=== PATIENT | male | born 1980 | race Caucasian/White ===

== ENCOUNTER 2016-05-10 23:40 | Emergency (ER) | payer SELFPAY ==
[2016-05-11 05:11] LABS: HEMOGLOBIN 16.1 gm/dl (14.0-17.5); RED BLOOD COUNT 5.01 M/UL (4.20-5.50)
[2016-05-11 05:27] LABS: BUN/CREATININE RATIO 21 (0-10)
== END 2016-05-11 14:20 | disposition home or self-care (01) ==
LOC: ER1 23:40
PROVIDERS: Family Medicine
DX: R60.0 Localized edema (principal); N39.0 Urinary tract infection, site not specified
CPT/HCPCS: ECHO; 36415; 71020; 80053; 81001; 82550; 83880; 85025; 85379; 87086; 93005; 93306; 93970; 96365; 99284; J0696; J7050

== ENCOUNTER 2020-02-21 07:05 | Inpatient (IN) | payer OTHER ==
[~2020-02-21] VITALS: Ht 172.7 cm; Wt 115.6 kg
[~2020-02-21 07:05] MED LIST: ASPIRIN EC81 MG PO; CLEOCIN HCL300 MG PO; COREG6.25 MG PO; CYCLOBENZAPRINE5 MG PO; LOPRESSOR 25 MG25 MG PO; MEDROL DOSEPAK 24 MG PO; NASAL SPRAY30 ML; ROCEPHIN 2 GM AD2 GM IV; THERAGRAN M TAB1 EA PO; VANCOCIN IV 11000 MG IV
[2020-02-21 08:18] LABS: HEMOGLOBIN 15.2 gm/dl (14.0-17.5); RED BLOOD COUNT 5.05 M/UL (4.20-5.50); WHITE BLOOD COUNT 13.8 K/UL (4.5-11.0)
[2020-02-21 08:43] LABS: BUN/CREATININE RATIO 13 (0-10)
[2020-02-21] MEDS ORDERED: WARFARIN SODIUM10 MG PO (12:59)
[2020-02-21 16:53] LABS: HEMOGLOBIN 14.7 gm/dl (14.0-17.5); RED BLOOD COUNT 4.93 M/UL (4.20-5.50); WHITE BLOOD COUNT 11.8 K/UL (4.5-11.0)
[2020-02-22 02:21] LABS: HEMOGLOBIN 14.7 gm/dl (14.0-17.5); RED BLOOD COUNT 5.01 M/UL (4.20-5.50); WHITE BLOOD COUNT 8.2 K/UL (4.5-11.0)
[2020-02-22 02:44] LABS: BUN/CREATININE RATIO 7 (0-10)
[2020-02-23 02:51] LABS: HEMOGLOBIN 14.6 gm/dl (14.0-17.5); RED BLOOD COUNT 4.87 M/UL (4.20-5.50); WHITE BLOOD COUNT 8.2 K/UL (4.5-11.0)
[2020-02-23 03:51] LABS: BUN/CREATININE RATIO 11 (0-10)
[2020-02-24 06:02] LABS: HEMOGLOBIN 15.5 gm/dl (14.0-17.5); RED BLOOD COUNT 5.15 M/UL (4.20-5.50); WHITE BLOOD COUNT 6.8 K/UL (4.5-11.0)
[2020-02-24 06:23] LABS: BUN/CREATININE RATIO 12 (0-10)
[2020-02-25 07:38] LABS: HEMOGLOBIN 14.9 gm/dl (14.0-17.5); RED BLOOD COUNT 5.13 M/UL (4.20-5.50); WHITE BLOOD COUNT 8.1 K/UL (4.5-11.0)
[2020-02-25 08:00] LABS: BUN/CREATININE RATIO 12 (0-10)
--- NOTE | 2020-02-25 20:34 | NUR ---
PATIENT STATED THAT HE WANTED TO LEAVE THE HOSPITAL AGAINST MEDICAL ADVICE. FIELD MECHANICAL METER TESTER INFORMED PATIENT OF COMPLICATIONS THAT COULD OCCUR IF HE CHOSE TO LEAVE AGAINST THE MEDICAL ADVICE OF A LICENSED PHYSICIAN. PATIENT VERBALIZED UNDERSTANDING AND IS ALERT AND ORIENTED X3. FIELD MECHANICAL METER TESTER NOTIFIED DR. PEREZ WHO INSTRUCTED FIELD MECHANICAL METER TESTER TO PROVIDE PATIENT WITH THE PROPER DOCUMENTATION. AGAINST MEDICAL ADVICE FORM FILLED OUT, SIGNED BY PATIENT, AND WITNESSED BY FIELD MECHANICAL METER TESTER. FIELD MECHANICAL METER TESTER NOTIFIED CONSERVATION SCIENCE OFFICER WELL. BILATERAL IV'S REMOVED FROM PATIENT. NO S/SX OF PAIN, DISCOMFORT, OR DISTRESS. PATIENT STATED HE HAD A MODE OF TRANSPORTATION AND EXITED FIFTH FLOOR.------LEONARDO HENSON RN 02/25/202037
[2020-05-23] MEDS ORDERED: LOVENOX SY120 MG/0.8 SC (01:45)
[2020-05-24] MEDS ORDERED: WARFARIN SODIUM5 MG PO (11:23)
[2020-05-25] MEDS ORDERED: WARFARIN SODIUM10 MG PO (11:24)
== END 2020-02-25 20:34 | disposition left against medical advice (07) | DRG 313 ==
LOC: ER1 07:05 → CDU 12:00 → M/S 13:41
PROVIDERS: Emergency Medicine; Internal Medicine; Physician Assistant Medical; ADMIT Internal Medicine
DX: R07.89 Other chest pain (principal); K22.8 Other specified diseases of esophagus; Z95.2 Presence of prosthetic heart valve; I10 Essential (primary) hypertension; F17.210 Nicotine dependence, cigarettes, uncomplicated; Z82.49 Family history of ischemic heart disease and other diseases of the circulatory system; R79.9 Abnormal finding of blood chemistry, unspecified; D50.9 Iron deficiency anemia, unspecified; R79.1 Abnormal coagulation profile; Z90.49 Acquired absence of other specified parts of digestive tract; Z98.61 Coronary angioplasty status; Z83.3 Family history of diabetes mellitus; Z82.69 Family history of other diseases of the musculoskeletal system and connective tissue; Z80.9 Family history of malignant neoplasm, unspecified; Z79.82 Long term (current) use of aspirin; I44.30 Unspecified atrioventricular block; K20.90 Esophagitis, unspecified without bleeding; Z91.14 Patient's other noncompliance with medication regimen; E78.5 Hyperlipidemia, unspecified
CPT/HCPCS: ECHO; 36415; 71045; 80048; 80053; 80061; 82550; 82553; 83735; 83874; 83880; 84443; 84484; 85025; 85027; 85379; 85610; 85730; 93005; 93306; 96374; 96375; 99285; C9113; G0378; J1335; J1644; J2270; J2405; J7030; Q9967

== ENCOUNTER 2020-03-04 18:11 | Inpatient (IN) | payer OTHER ==
[~2020-03-04] VITALS: Ht 172.7 cm; Wt 108.4 kg
[~2020-03-04 18:11] MED LIST changes: -DOXYCYCLINE HY100 M2 PO; -JANTOVEN2 MG PO; -LOVENOX SY120 MG/0.8 SC; -NAPROSYN500 MG PO; -WARFARIN SODIUM5 MG PO
[2020-03-04 19:54] LABS: HEMOGLOBIN 14.1 gm/dl (14.0-17.5); RED BLOOD COUNT 4.71 M/UL (4.20-5.50); WHITE BLOOD COUNT 7.2 K/UL (4.5-11.0)
[2020-03-04 20:30] LABS: BUN/CREATININE RATIO 21 (0-10)
[2020-03-05 03:15] LABS: HEMOGLOBIN 14.5 gm/dl (14.0-17.5); RED BLOOD COUNT 4.86 M/UL (4.20-5.50)
[2020-03-05 03:16] LABS: WHITE BLOOD COUNT 10.6 K/UL (4.5-11.0)
[2020-03-05 03:42] LABS: BUN/CREATININE RATIO 20 (0-10)
[2020-03-06 07:07] LABS: HEMOGLOBIN 13.8 gm/dl (14.0-17.5); RED BLOOD COUNT 4.67 M/UL (4.20-5.50); WHITE BLOOD COUNT 11.4 K/UL (4.5-11.0)
[2020-03-06 07:46] LABS: BUN/CREATININE RATIO 11 (0-10)
[2020-03-06 11:13] LABS: HBSAG SCREEN Negative (Negative); HEP A AB, IGM Negative (Negative); HEP B CORE AB, IGM Negative (Negative); HEP C VIRUS AB >11.0 (0.0-0.9)
[2020-03-06 17:26] LABS: HEMOGLOBIN 13.5 gm/dl (14.0-17.5); RED BLOOD COUNT 4.55 M/UL (4.20-5.50)
--- NOTE | 2020-03-07 00:45 | NUR ---
LABORATORY WAS NOTIFIED THAT PTT, HEPARIN PROTOCOL WAS DUE AT 0005 ON 03/07/20. STILL WAITING ON LAB TO DRAW LEVEL. WCTM
--- NOTE | 2020-03-07 00:56 | NUR ---
PT REFUSED TO BE STUCK TWICE WITHIN A 3-HOUR TIME PERIOD, THEREFORE SEXUAL HEALTH PHYSICIAN JOSSY PTT HP, WELL ALL OTHER AM LABS.
[2020-03-07 01:18] LABS: HEMOGLOBIN 13.7 gm/dl (14.0-17.5); RED BLOOD COUNT 4.65 M/UL (4.20-5.50); WHITE BLOOD COUNT 10.7 K/UL (4.5-11.0)
[2020-03-07 01:38] LABS: BUN/CREATININE RATIO 12 (0-10)
[2020-03-08 04:16] LABS: HEMOGLOBIN 13.2 gm/dl (14.0-17.5); RED BLOOD COUNT 4.41 M/UL (4.20-5.50)
[2020-03-08 04:17] LABS: WHITE BLOOD COUNT 7.2 K/UL (4.5-11.0)
[2020-03-08 04:53] LABS: BUN/CREATININE RATIO 8 (0-10)
--- NOTE | 2020-03-08 18:19 | NUR ---
DR. GELLER AWARE OF CHEST PAIN AND PRESSURE. NEW ORDERS NOTED.
[2020-03-09 08:49] LABS: HEMOGLOBIN 14.3 gm/dl (14.0-17.5); RED BLOOD COUNT 4.8 M/UL (4.20-5.50); WHITE BLOOD COUNT 7.1 K/UL (4.5-11.0)
[2020-03-09 09:14] LABS: BUN/CREATININE RATIO 8 (0-10)
[2020-03-09] MEDS ORDERED: WARFARIN SODIUM5 MG PO (09:55)
[2020-03-09] MEDS ORDERED: JANTOVEN2 MG PO (09:55)
[2020-03-09] MEDS ORDERED: DOXYCYCLINE HY100 M2 PO (09:55)
[2020-05-23] MEDS ORDERED: LOVENOX SY120 MG/0.8 SC (01:45)
[2020-05-24] MEDS ORDERED: WARFARIN SODIUM5 MG PO (11:23)
[2020-05-25] MEDS ORDERED: WARFARIN SODIUM10 MG PO (11:24)
== END 2020-03-09 12:44 | disposition home or self-care (01) | DRG 948 ==
LOC: ER1 18:11 → CDU 22:11 → M/S 22:11
PROVIDERS: Family Medicine; Internal Medicine; ADMIT Internal Medicine
DX: R79.1 Abnormal coagulation profile (principal); B17.9 Acute viral hepatitis, unspecified; E87.1 Hypo-osmolality and hyponatremia; Z20.822 Contact with and (suspected) exposure to COVID-19; T45.515A Adverse effect of anticoagulants, initial encounter; J40 Bronchitis, not specified as acute or chronic; I10 Essential (primary) hypertension; D69.59 Other secondary thrombocytopenia; B18.2 Chronic viral hepatitis C; E78.5 Hyperlipidemia, unspecified; I25.10 Atherosclerotic heart disease of native coronary artery without angina pectoris; E87.6 Hypokalemia; Z87.891 Personal history of nicotine dependence; Z79.01 Long term (current) use of anticoagulants; Z79.82 Long term (current) use of aspirin; I25.2 Old myocardial infarction; Z95.2 Presence of prosthetic heart valve; Z80.1 Family history of malignant neoplasm of trachea, bronchus and lung; Z79.899 Other long term (current) drug therapy
CPT/HCPCS: 36415; 71046; 76705; 80048; 80053; 80074; 80076; 80307; 82550; 82553; 83540; 83550; 83874; 84484; 85025; 85027; 85610; 85730; 93005; 99284; G0378; G0480; J1644; J3430; U0002

== ENCOUNTER → 2020-03-04 | Outpatient (CLI) | payer OTHER ==
[~2020-03-04] MED LIST changes: +DOXYCYCLINE HY100 M2 PO; +JANTOVEN2 MG PO; +LOVENOX SY120 MG/0.8 SC; +NAPROSYN500 MG PO; +WARFARIN SODIUM10 MG PO; +WARFARIN SODIUM5 MG PO
== END ==
LOC: LAB 15:19
DX: Z53.9 Procedure and treatment not carried out, unspecified reason (principal)
CPT/HCPCS: 36415; 85610

== ENCOUNTER 2020-05-02 09:36 | Emergency (ER) | payer OTHER ==
[~2020-05-02 09:36] MED LIST changes: +DOXYCYCLINE HY100 M2 PO; +JANTOVEN2 MG PO; +WARFARIN SODIUM5 MG PO
[2020-05-02] MEDS ORDERED: NAPROSYN500 MG PO (11:01)
[2020-05-23] MEDS ORDERED: LOVENOX SY120 MG/0.8 SC (01:45)
[2020-05-24] MEDS ORDERED: WARFARIN SODIUM5 MG PO (11:23)
[2020-05-25] MEDS ORDERED: WARFARIN SODIUM10 MG PO (11:24)
== END 2020-05-02 11:18 | disposition home or self-care (01) ==
LOC: ER1 09:36
DX: S63.502A Unspecified sprain of left wrist, initial encounter (principal); X50.0XXA Overexertion from strenuous movement or load, initial encounter
CPT/HCPCS: 29125; 73110; 96372; 99283; J1885

== ENCOUNTER 2020-05-17 14:35 | Emergency (ER) | payer OTHER ==
[~2020-05-17 14:35] MED LIST changes: +NAPROSYN500 MG PO
[2020-05-17 15:40] LABS: HEMOGLOBIN 15.8 gm/dl (14.0-17.5); RED BLOOD COUNT 5.01 M/UL (4.20-5.50); WHITE BLOOD COUNT 14.1 K/UL (4.5-11.0)
[2020-05-17 16:32] LABS: BUN/CREATININE RATIO 14 (0-10)
[2020-05-23] MEDS ORDERED: LOVENOX SY120 MG/0.8 SC (01:45)
[2020-05-24] MEDS ORDERED: WARFARIN SODIUM5 MG PO (11:23)
[2020-05-25] MEDS ORDERED: WARFARIN SODIUM10 MG PO (11:24)
== END 2020-05-17 19:20 | disposition home or self-care (01) ==
LOC: ER1 14:35
PROVIDERS: Family Medicine
DX: R03.0 Elevated blood-pressure reading, without diagnosis of hypertension (principal); I10 Essential (primary) hypertension; I35.8 Other nonrheumatic aortic valve disorders; F17.210 Nicotine dependence, cigarettes, uncomplicated
CPT/HCPCS: 30903; 80053; 85025; 85610; 96374; 99283; J2550

== ENCOUNTER 2020-05-25 23:43 | Inpatient (IN) | payer OTHER ==
[~2020-05-25] VITALS: Ht 172.7 cm; Wt 111.1 kg
[~2020-05-25 23:43] MED LIST changes: +LOVENOX SY120 MG/0.8 SC
[2020-05-26 00:14] LABS: HEMOGLOBIN 11.5 gm/dl (14.0-17.5); RED BLOOD COUNT 3.79 M/UL (4.20-5.50); WHITE BLOOD COUNT 12.3 K/UL (4.5-11.0)
[2020-05-26 00:40] LABS: BUN/CREATININE RATIO 11 (0-10)
[2020-05-26 05:57] LABS: HEMOGLOBIN 11.8 gm/dl (14.0-17.5); RED BLOOD COUNT 3.92 M/UL (4.20-5.50)
[2020-05-26 05:59] LABS: WHITE BLOOD COUNT 25.7 K/UL (4.5-11.0)
[2020-05-26 06:30] LABS: BUN/CREATININE RATIO 12 (0-10)
[2020-05-27 04:55] LABS: ACINETOBACTER BAUMANNII Not Detected (Negative); CANDIDA ALBICANS Not Detected (Negative); CANDIDA KRUSEI Not Detected (Negative); CANDIDA TROPICALIS Not Detected (Negative); ENTEROCOCCUS Not Detected (Negative); ESCHERICHIA COLI Not Detected (Negative); HAEMOPHILUS INFLUENZAE Not Detected (Negative); KLEBSIELLA OXYTOCA Not Detected (Negative); KLEBSIELLA PNEUMONIAE Not Detected (Negative); KPC-CARBAPENEM-RESISTANCE GENE Not Detected (Negative); PROTEUS Not Detected (Negative); PSEUDOMONAS AERUGINOSA Not Detected (Negative); SERRATIA MARCESANS Not Detected (Negative); STAPHYLOCOCCUS Not Detected (Negative); STAPHYLOCOCCUS AUREUS Not Detected (Negative); STREP AGALACTIAE (GROUP B) Not Detected (Negative); STREP PYOGENES (GROUP A) Not Detected (Negative); STREPTOCOCCUS Not Detected (Negative); mecA (METHICILLIN RESIST GENE Not Detected (Negative); vanA/B (VANCOMYCIN RESIST GENE Not Detected (Negative)
[2020-05-27 05:20] LABS: HEMOGLOBIN 11.9 gm/dl (14.0-17.5); RED BLOOD COUNT 3.96 M/UL (4.20-5.50)
[2020-05-27 05:26] LABS: WHITE BLOOD COUNT 17.8 K/UL (4.5-11.0)
[2020-05-27 05:49] LABS: BUN/CREATININE RATIO 20 (0-10)
[2020-05-27 13:05] LABS: HEMOGLOBIN 11.2 gm/dl (14.0-17.5); RED BLOOD COUNT 3.68 M/UL (4.20-5.50); WHITE BLOOD COUNT 13.5 K/UL (4.5-11.0)
[2020-05-28 04:40] LABS: HEMOGLOBIN 10.6 gm/dl (14.0-17.5); RED BLOOD COUNT 3.52 M/UL (4.20-5.50)
[2020-05-28 04:47] LABS: WHITE BLOOD COUNT 9.5 K/UL (4.5-11.0)
[2020-05-28 05:02] LABS: BUN/CREATININE RATIO 16 (0-10)
[2020-05-29 04:36] LABS: HEMOGLOBIN 10.9 gm/dl (14.0-17.5); RED BLOOD COUNT 3.66 M/UL (4.20-5.50); WHITE BLOOD COUNT 9.1 K/UL (4.5-11.0)
[2020-05-29 04:54] LABS: BUN/CREATININE RATIO 10 (0-10)
== END 2020-05-29 15:01 | disposition other institution (70) | DRG 314 ==
LOC: ER1 23:43 → CDU 05-26 01:04 → CCU 05-26 01:04
PROVIDERS: Emergency Medicine; Internal Medicine Cardiovascular Disease; Internal Medicine Infectious Disease; ADMIT Internal Medicine
DX: T82.6XXA Infection and inflammatory reaction due to cardiac valve prosthesis, initial encounter (principal); R65.21 Severe sepsis with septic shock; I33.0 Acute and subacute infective endocarditis; A41.89 Other specified sepsis; N17.9 Acute kidney failure, unspecified; I44.2 Atrioventricular block, complete; E87.1 Hypo-osmolality and hyponatremia; Z68.41 Body mass index [BMI] 40.0-44.9, adult; Y83.8 Other surgical procedures as the cause of abnormal reaction of the patient, or of later complication, without mention of misadventure at the time of the procedure; E87.6 Hypokalemia; F17.200 Nicotine dependence, unspecified, uncomplicated; Z20.822 Contact with and (suspected) exposure to COVID-19; E83.39 Other disorders of phosphorus metabolism; Z90.49 Acquired absence of other specified parts of digestive tract; Z85.9 Personal history of malignant neoplasm, unspecified; D50.9 Iron deficiency anemia, unspecified; E66.9 Obesity, unspecified; Z79.82 Long term (current) use of aspirin; Z83.3 Family history of diabetes mellitus; Z80.9 Family history of malignant neoplasm, unspecified; Z82.49 Family history of ischemic heart disease and other diseases of the circulatory system
CPT/HCPCS: ECHO; 36415; 71045; 80053; 80202; 80307; 81001; 82550; 82553; 82962; 83605; 83690; 83735; 83874; 83880; 84100; 84439; 84443; 84484; 85025; 85027; 85610; 85730; 86140; 87040; 87077; 87150; 87186; 93005; 93306; 93312; 93320; 96365; 96375; 99285; J0461; J0696; J1200; J1265; J1644; J2250; J3010; J3370; J3480; J7030; J7070; U0002

== ENCOUNTER → 2020-10-06 | Outpatient (CLI) | payer OTHER ==
[~2020-10-06] MED LIST changes: +AMOXICILLIN500 MG PO; +BUPRENORPHIN-N1 EACH SL; +CARVEDILOL6.25 MG PO; +ENOXAPARIN120 MG/0.8 SC; +JANTOVEN1 MG PO
== END ==
LOC: HEART 5 09-10 15:00
DX: R06.02 Shortness of breath (principal)
CPT/HCPCS: 93306

== ENCOUNTER 2020-10-15 12:00 | Inpatient (IN) | payer OTHER ==
[~2020-10-15] VITALS: Ht 172.7 cm; Wt 110.7 kg
[~2020-10-15 12:00] MED LIST changes: -AMOXICILLIN500 MG PO; -BUPRENORPHIN-N1 EACH SL; -CARVEDILOL6.25 MG PO; -ENOXAPARIN120 MG/0.8 SC; -JANTOVEN1 MG PO
[2020-10-15 13:09] LABS: HEMOGLOBIN 15.1 gm/dl (14.0-17.5); RED BLOOD COUNT 5.08 M/UL (4.20-5.50); WHITE BLOOD COUNT 20.9 K/UL (4.5-11.0)
[2020-10-15] MEDS ORDERED: CARVEDILOL6.25 MG PO (22:20)
[2020-10-15] MEDS ORDERED: WARFARIN SODIUM5 MG PO (22:20)
[2020-10-15] MEDS ORDERED: AMOXICILLIN500 MG PO (22:21)
[2020-10-16 03:59] LABS: ACINETOBACTER BAUMANNII Not Detected (Negative); CANDIDA ALBICANS Not Detected (Negative); CANDIDA KRUSEI Not Detected (Negative); CANDIDA TROPICALIS Not Detected (Negative); ENTEROCOCCUS Not Detected (Negative); ESCHERICHIA COLI Not Detected (Negative); HAEMOPHILUS INFLUENZAE Not Detected (Negative); KLEBSIELLA OXYTOCA Not Detected (Negative); KLEBSIELLA PNEUMONIAE Not Detected (Negative); KPC-CARBAPENEM-RESISTANCE GENE Not Detected (Negative); PROTEUS Not Detected (Negative); PSEUDOMONAS AERUGINOSA Not Detected (Negative); SERRATIA MARCESANS Not Detected (Negative); STREP AGALACTIAE (GROUP B) Not Detected (Negative); STREP PYOGENES (GROUP A) Not Detected (Negative); STREPTOCOCCUS Not Detected (Negative); vanA/B (VANCOMYCIN RESIST GENE Not Detected (Negative)
[2020-10-16 04:03] LABS: STAPHYLOCOCCUS DETECTED (Negative); mecA (METHICILLIN RESIST GENE DETECTED (Negative)
[2020-10-16 04:04] LABS: STAPHYLOCOCCUS AUREUS DETECTED (Negative)
--- NOTE | 2020-10-16 04:16 | NUR ---
PATIENTS BLOOD CULTURE RESULTS AND BIOFIRE RESULTS CALLED TO DR ELENITA ISAAC. NO NEW ORDERS AT THIS TIME. ALSO NOTIFIED HIM THAT INFECTIOUS DISEASE WILL BE OUT OF OFFICE UNTIL 10/22.
[2020-10-16 04:38] LABS: HEMOGLOBIN 13.2 gm/dl (14.0-17.5)
[2020-10-16 04:40] LABS: RED BLOOD COUNT 4.44 M/UL (4.20-5.50)
[2020-10-16] MEDS ORDERED: BUPRENORPHIN-N1 EACH SL (10:04)
[2020-10-16 12:14] LABS: HBSAG SCREEN Negative (Negative); HEP A AB, IGM Negative (Negative); HEP B CORE AB, IGM Negative (Negative); HEP C VIRUS AB >11.0 (0.0-0.9)
[2020-10-17 11:16] LABS: HEMOGLOBIN 11.3 gm/dl (14.0-17.5)
[2020-10-17 11:20] LABS: RED BLOOD COUNT 3.84 M/UL (4.20-5.50)
[2020-10-18 03:06] LABS: HEMOGLOBIN 11.5 gm/dl (14.0-17.5); RED BLOOD COUNT 3.95 M/UL (4.20-5.50); WHITE BLOOD COUNT 8.9 K/UL (4.5-11.0)
[2020-10-22 03:58] LABS: HEMOGLOBIN 11.9 gm/dl (14.0-17.5); RED BLOOD COUNT 4.07 M/UL (4.20-5.50); WHITE BLOOD COUNT 6.4 K/UL (4.5-11.0)
[2020-10-23 10:29] LABS: HEMOGLOBIN 12.1 gm/dl (14.0-17.5); RED BLOOD COUNT 4.16 M/UL (4.20-5.50); WHITE BLOOD COUNT 6.4 K/UL (4.5-11.0)
[2020-10-24 02:49] LABS: HEMOGLOBIN 11.4 gm/dl (14.0-17.5); RED BLOOD COUNT 3.9 M/UL (4.20-5.50); WHITE BLOOD COUNT 22.9 K/UL (4.5-11.0)
[2020-10-25 02:45] LABS: HEMOGLOBIN 11.4 gm/dl (14.0-17.5); RED BLOOD COUNT 3.88 M/UL (4.20-5.50)
[2020-10-25 02:47] LABS: WHITE BLOOD COUNT 8.8 K/UL (4.5-11.0)
[2020-10-26 03:13] LABS: HEMOGLOBIN 12.7 gm/dl (14.0-17.5)
[2020-10-26 03:17] LABS: RED BLOOD COUNT 4.3 M/UL (4.20-5.50); WHITE BLOOD COUNT 5.8 K/UL (4.5-11.0)
[2020-10-26 03:46] LABS: BUN/CREATININE RATIO 20 (0-10)
[2020-10-27 10:05] LABS: HEMOGLOBIN 12.1 gm/dl (14.0-17.5); RED BLOOD COUNT 4.08 M/UL (4.20-5.50)
[2020-10-27 10:26] LABS: BUN/CREATININE RATIO 20 (0-10)
[2020-10-27] MEDS ORDERED: WARFARIN SODIUM5 MG PO (13:49)
[2020-10-27] MEDS ORDERED: ENOXAPARIN120 MG/0.8 SC (13:49)
[2020-10-27] MEDS ORDERED: JANTOVEN1 MG PO (13:49)
== END 2020-10-27 16:11 | disposition home or self-care (01) | DRG 314 ==
LOC: ER1 12:00 → CDU 14:14 → PROG CARE 14:14
PROVIDERS: Emergency Medicine; Internal Medicine; Internal Medicine Infectious Disease; Physician Assistant Medical; ADMIT Internal Medicine
PROC: B24BZZ4 Ultrasonography of Heart with Aorta, Transesophageal (ICD-10-PCS; principal; 2020-10-22)
DX: T82.6XXA Infection and inflammatory reaction due to cardiac valve prosthesis, initial encounter (principal); R65.21 Severe sepsis with septic shock; N17.0 Acute kidney failure with tubular necrosis; A41.02 Sepsis due to Methicillin resistant Staphylococcus aureus; I33.0 Acute and subacute infective endocarditis; E87.1 Hypo-osmolality and hyponatremia; I44.2 Atrioventricular block, complete; F11.20 Opioid dependence, uncomplicated; Z20.822 Contact with and (suspected) exposure to COVID-19; D69.6 Thrombocytopenia, unspecified; I44.7 Left bundle-branch block, unspecified; F15.90 Other stimulant use, unspecified, uncomplicated; B19.20 Unspecified viral hepatitis C without hepatic coma; R94.5 Abnormal results of liver function studies; E78.5 Hyperlipidemia, unspecified; Y83.9 Surgical procedure, unspecified as the cause of abnormal reaction of the patient, or of later complication, without mention of misadventure at the time of the procedure; E66.9 Obesity, unspecified; I12.9 Hypertensive chronic kidney disease with stage 1 through stage 4 chronic kidney disease, or unspecified chronic kidney disease; N18.30 Chronic kidney disease, stage 3 unspecified; D63.1 Anemia in chronic kidney disease; I08.3 Combined rheumatic disorders of mitral, aortic and tricuspid valves; Z81.8 Family history of other mental and behavioral disorders; Z90.49 Acquired absence of other specified parts of digestive tract; Z95.0 Presence of cardiac pacemaker; Z95.2 Presence of prosthetic heart valve; Z82.49 Family history of ischemic heart disease and other diseases of the circulatory system; Z83.3 Family history of diabetes mellitus; Z80.8 Family history of malignant neoplasm of other organs or systems; Y92.9 Unspecified place or not applicable; Z79.01 Long term (current) use of anticoagulants; Z79.899 Other long term (current) drug therapy; Z87.01 Personal history of pneumonia (recurrent)
CPT/HCPCS: 36415; 71045; 71250; 80048; 80053; 80074; 80202; 80307; 81001; 82550; 82553; 82570; 82962; 83605; 83735; 83874; 83880; 84100; 84133; 84300; 84484; 85025; 85027; 85610; 85652; 85730; 86140; 87040; 87077; 87086; 87150; 87186; 89050; 93005; 93312; 93320; 96374; 99285; J0696; J0878; J1335; J1644; J1650; J2001; J2250; J2310; J2405; J2704; J3010; J3370; J3475; J7070; P9047; U0002

== ENCOUNTER → 2020-10-28 | Outpatient (CLI) | payer OTHER ==
[~2020-10-28] VITALS: Ht 167.6 cm; Wt 110.2 kg
[~2020-10-28] MED LIST changes: +AMOXICILLIN500 MG PO; +BUPRENORPHIN-N1 EACH SL; +CARVEDILOL6.25 MG PO; +ENOXAPARIN120 MG/0.8 SC; +JANTOVEN1 MG PO
== END ==
LOC: OPSV 11:00
DX: I38 Endocarditis, valve unspecified (principal)
CPT/HCPCS: 96365; J0878

== ENCOUNTER → 2020-10-29 | Outpatient (CLI) | payer OTHER ==
[~2020-10-29] VITALS: Ht 167.6 cm; Wt 110.2 kg
== END ==
LOC: OPSV 11:00
DX: I38 Endocarditis, valve unspecified (principal)
CPT/HCPCS: 96365; J0878

== ENCOUNTER → 2020-10-30 | Outpatient (CLI) | payer OTHER ==
[~2020-10-30] VITALS: Ht 167.6 cm; Wt 110.2 kg
== END ==
LOC: OPSV 11:00
DX: I38 Endocarditis, valve unspecified (principal)
CPT/HCPCS: 96365; J0878

== ENCOUNTER → 2020-11-01 | Outpatient (CLI) | payer OTHER | LOC: OPSV 07:30 | DX: I38 Endocarditis, valve unspecified (principal) | CPT/HCPCS: 96365; J0878 ==

== ENCOUNTER → 2020-11-03 | Outpatient (CLI) | payer OTHER ==
[~2020-11-03] VITALS: Ht 167.6 cm; Wt 110.2 kg
== END ==
LOC: OPSV 07:30
DX: I38 Endocarditis, valve unspecified (principal)
CPT/HCPCS: 96365; J0878

== ENCOUNTER → 2020-11-05 | Outpatient (CLI) | payer OTHER | LOC: OPSV 11:00 | DX: I38 Endocarditis, valve unspecified (principal) | CPT/HCPCS: 96365; J0878 ==

== ENCOUNTER → 2020-11-06 | Outpatient (CLI) | payer OTHER ==
[~2020-11-06] VITALS: Ht 167.6 cm; Wt 110.2 kg
== END ==
LOC: OPSV 11:00
DX: I38 Endocarditis, valve unspecified (principal)
CPT/HCPCS: 96365; J0878

== ENCOUNTER → 2020-11-10 | Outpatient (CLI) | payer OTHER ==
[~2020-11-10] VITALS: Ht 167.6 cm; Wt 110.2 kg
== END ==
LOC: OPSV 08:05
DX: I38 Endocarditis, valve unspecified (principal)
CPT/HCPCS: 96365; J0878

== ENCOUNTER 2020-12-10 03:19 | Emergency (ER) | payer OTHER ==
[2020-12-10 04:03] LABS: HEMOGLOBIN 10.6 gm/dl (14.0-17.5); RED BLOOD COUNT 3.49 M/UL (4.20-5.50); WHITE BLOOD COUNT 9.6 K/UL (4.5-11.0)
[2020-12-10 04:35] LABS: BUN/CREATININE RATIO 15 (0-10)
[2020-12-12 04:33] LABS: ACINETOBACTER BAUMANNII Not Detected (Negative); CANDIDA ALBICANS Not Detected (Negative); CANDIDA KRUSEI Not Detected (Negative); CANDIDA TROPICALIS Not Detected (Negative); ENTEROCOCCUS Not Detected (Negative); ESCHERICHIA COLI Not Detected (Negative); HAEMOPHILUS INFLUENZAE Not Detected (Negative); KLEBSIELLA OXYTOCA Not Detected (Negative); KLEBSIELLA PNEUMONIAE Not Detected (Negative); KPC-CARBAPENEM-RESISTANCE GENE Not Detected (Negative); PROTEUS Not Detected (Negative); PSEUDOMONAS AERUGINOSA Not Detected (Negative); SERRATIA MARCESANS Not Detected (Negative); STAPHYLOCOCCUS Not Detected (Negative); STAPHYLOCOCCUS AUREUS Not Detected (Negative); STREP AGALACTIAE (GROUP B) Not Detected (Negative); STREP PYOGENES (GROUP A) Not Detected (Negative); STREPTOCOCCUS Not Detected (Negative); mecA (METHICILLIN RESIST GENE Not Detected (Negative); vanA/B (VANCOMYCIN RESIST GENE Not Detected (Negative)
== END 2020-12-10 06:57 | disposition home or self-care (01) ==
LOC: ER1 03:19
PROVIDERS: Family Medicine
DX: J40 Bronchitis, not specified as acute or chronic (principal); I38 Endocarditis, valve unspecified; F17.210 Nicotine dependence, cigarettes, uncomplicated; Z95.0 Presence of cardiac pacemaker; R06.02 Shortness of breath; R05.9 Cough, unspecified
CPT/HCPCS: 71045; 80053; 82550; 82553; 83605; 83874; 84484; 85025; 87040; 87077; 87150; 99284

== ENCOUNTER 2020-12-12 05:25 | Inpatient (IN) | payer OTHER ==
[~2020-12-12] VITALS: Ht 172.7 cm; Wt 111.4 kg
[2020-12-12 06:55] LABS: HEMOGLOBIN 11.5 gm/dl (14.0-17.5); WHITE BLOOD COUNT 7.5 K/UL (4.5-11.0)
[2020-12-12 06:56] LABS: RED BLOOD COUNT 3.92 M/UL (4.20-5.50)
[2020-12-12 07:24] LABS: BUN/CREATININE RATIO 10 (0-10)
[2020-12-13 04:14] LABS: ACINETOBACTER BAUMANNII Not Detected (Negative); CANDIDA ALBICANS Not Detected (Negative); CANDIDA KRUSEI Not Detected (Negative); CANDIDA TROPICALIS Not Detected (Negative); ENTEROCOCCUS Not Detected (Negative); ESCHERICHIA COLI Not Detected (Negative); HAEMOPHILUS INFLUENZAE Not Detected (Negative); KLEBSIELLA OXYTOCA Not Detected (Negative); KLEBSIELLA PNEUMONIAE Not Detected (Negative); KPC-CARBAPENEM-RESISTANCE GENE Not Detected (Negative); PROTEUS Not Detected (Negative); PSEUDOMONAS AERUGINOSA Not Detected (Negative); SERRATIA MARCESANS Not Detected (Negative); STAPHYLOCOCCUS Not Detected (Negative); STAPHYLOCOCCUS AUREUS Not Detected (Negative); STREP AGALACTIAE (GROUP B) Not Detected (Negative); STREP PYOGENES (GROUP A) Not Detected (Negative); STREPTOCOCCUS Not Detected (Negative); mecA (METHICILLIN RESIST GENE Not Detected (Negative); vanA/B (VANCOMYCIN RESIST GENE Not Detected (Negative)
[2020-12-13 06:04] LABS: HEMOGLOBIN 11.2 gm/dl (14.0-17.5); RED BLOOD COUNT 3.7 M/UL (4.20-5.50); WHITE BLOOD COUNT 22.9 K/UL (4.5-11.0)
[2020-12-13] MEDS ORDERED: BUPRENORPHIN-N1 EACH SL (09:46)
[2020-12-13] MEDS ORDERED: WARFARIN SODIUM5 MG PO (16:10)
[2020-12-14 03:53] LABS: RED BLOOD COUNT 3.37 M/UL (4.20-5.50)
[2020-12-14 03:56] LABS: WHITE BLOOD COUNT 11.5 K/UL (4.5-11.0)
[2020-12-15 03:29] LABS: RED BLOOD COUNT 3.37 M/UL (4.20-5.50); WHITE BLOOD COUNT 8.9 K/UL (4.5-11.0)
[2020-12-15 04:21] LABS: BUN/CREATININE RATIO 16 (0-10)
--- NOTE | 2020-12-15 15:39 | NUR ---
PATIENT HAD PHOEBE: STARTED AT 1109, VS 118/46 MAP OF 59, 92% ON 2L/M, 86 HR. PER AND ANESTHESIA ADMINISTERING PROPOFAL. PATIENT SEDATED. INCREASED 02 TO 4L/M APPROX 1125AM DUE TO 88%, CAME UP TO 90%. 1130 116/84, MAP 92, 97%, 36HR. PROCEDURE COMPLETED AT 1127, PATIENT RESTS QUIETLY, NO DISTRESS, TUBE REMOVED. WAS FOUND TO HAVE AORTIC ABSCESS. ECHO PERFORMED PER CAITY GREER RN AND ANESTHESIA WAS ALENA MAYO
[2020-12-16 03:36] LABS: HEMOGLOBIN 9.3 gm/dl (14.0-17.5); RED BLOOD COUNT 3.14 M/UL (4.20-5.50); WHITE BLOOD COUNT 8.8 K/UL (4.5-11.0)
[2020-12-16 04:30] LABS: BUN/CREATININE RATIO 12 (0-10)
--- NOTE | 2020-12-16 19:04 | NUR ---
PT NOT IN ROOM AT THE TIME OF ATTEMPTED ASSESSMENT. WILL EDUCATE WILL PT GETS IN THE ROOM TO STAY ON THE FLOOR. WILL REASSESS AT THAT TIME.
--- NOTE | 2020-12-16 19:50 | NUR ---
patient back in the room around 1930, he was educated to stay on the floor
[2020-12-17 02:55] LABS: RED BLOOD COUNT 3.37 M/UL (4.20-5.50); WHITE BLOOD COUNT 8.7 K/UL (4.5-11.0)
[2020-12-17 03:52] LABS: BUN/CREATININE RATIO 13 (0-10)
--- NOTE | 2020-12-20 02:56 | NUR ---
Assumed pt from Albina ARAGON. Pt assessed agree with prior assessment no changes at this time. Pt did have a temp of 99.3 provided Tylenol per MAR. will continue to monitor.
[2020-12-22] MEDS ORDERED: CUBICIN 500 MG500 MG IV (12:56)
[2020-12-22 14:46] LABS: HEMOGLOBIN 10.3 gm/dl (14.0-17.5); RED BLOOD COUNT 3.51 M/UL (4.20-5.50); WHITE BLOOD COUNT 8.5 K/UL (4.5-11.0)
[2020-12-22 15:15] LABS: BUN/CREATININE RATIO 16 (0-10)
[2020-12-22] MEDS ORDERED: CARVEDILOL3.125 MG PO (15:26)
--- NOTE | 2020-12-22 16:17 | NUR ---
Unsuccessful IV attempt via ultrasound. Midline inserted. Dr. Segal notified about midline insertion stated "DC home with midline for abx" due to patient being a difficult IV stick and needing manager terminal abx treatment. 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 manager hair Colette has reached out to Ricki Espinoza to get confirmation of negative drug test results, so far unsuccessful. Will continue to follow up.
--- NOTE | 2020-12-22 18:23 | NUR ---
REPORT CALLED TO [facility] AT THIS TIME. SAADIA ARAGON
== END 2020-12-22 18:33 | disposition home health service (06) | DRG 314 ==
LOC: ER1 05:25 → MED SURG 4 08:18 → CDU 08:18 → PROG CARE 08:18 → MED SURG 4 12-18 16:06
PROVIDERS: Family Medicine; Internal Medicine; Internal Medicine Infectious Disease; Physician Assistant; ADMIT Internal Medicine
PROC: 3E033XZ Introduction of Vasopressor into Peripheral Vein, Percutaneous Approach (ICD-10-PCS; 2020-12-12)
PROC: B24BZZ4 Ultrasonography of Heart with Aorta, Transesophageal (ICD-10-PCS; 2020-12-12)
PROC: 02HV33Z Insertion of Infusion Device into Superior Vena Cava, Percutaneous Approach (ICD-10-PCS; principal; 2020-12-22)
PROC: B548ZZA Ultrasonography of Superior Vena Cava, Guidance (ICD-10-PCS; 2020-12-22)
DX: T82.6XXA Infection and inflammatory reaction due to cardiac valve prosthesis, initial encounter (principal); R65.21 Severe sepsis with septic shock; A41.02 Sepsis due to Methicillin resistant Staphylococcus aureus; Z20.822 Contact with and (suspected) exposure to COVID-19; N17.9 Acute kidney failure, unspecified; I50.22 Chronic systolic (congestive) heart failure; E87.6 Hypokalemia; D69.6 Thrombocytopenia, unspecified; F17.210 Nicotine dependence, cigarettes, uncomplicated; Y83.8 Other surgical procedures as the cause of abnormal reaction of the patient, or of later complication, without mention of misadventure at the time of the procedure; R79.1 Abnormal coagulation profile; I08.3 Combined rheumatic disorders of mitral, aortic and tricuspid valves; I11.0 Hypertensive heart disease with heart failure; I44.7 Left bundle-branch block, unspecified; B19.20 Unspecified viral hepatitis C without hepatic coma; R74.01 Elevation of levels of liver transaminase levels; F11.10 Opioid abuse, uncomplicated; I49.5 Sick sinus syndrome; Z95.0 Presence of cardiac pacemaker; Z79.82 Long term (current) use of aspirin; Z90.49 Acquired absence of other specified parts of digestive tract; Z82.49 Family history of ischemic heart disease and other diseases of the circulatory system; Z83.3 Family history of diabetes mellitus; Z91.14 Patient's other noncompliance with medication regimen; Z79.01 Long term (current) use of anticoagulants; I25.2 Old myocardial infarction
CPT/HCPCS: 36415; 71045; 73564; 80048; 80053; 82550; 82553; 83605; 83874; 83880; 84439; 84443; 84484; 85025; 85027; 85610; 85652; 86140; 87040; 87077; 87150; 93005; 93312; 93320; 93970; 96365; 96366; 96375; 99285; J0692; J0878; J1580; J2704; J3370; J7030; J7040; J7070; U0002

== ENCOUNTER 2020-12-25 21:47 | Inpatient (IN) | payer OTHER ==
[~2020-12-25] VITALS: Ht 172.7 cm; Wt 110.7 kg
[~2020-12-25 21:47] MED LIST changes: +CARVEDILOL3.125 MG PO; +CUBICIN 500 MG500 MG IV
[2020-12-25 22:37] LABS: HEMOGLOBIN 9.5 gm/dl (14.0-17.5); RED BLOOD COUNT 3.23 M/UL (4.20-5.50); WHITE BLOOD COUNT 8.4 K/UL (4.5-11.0)
--- NOTE | 2020-12-26 14:40 | NUR ---
REPORT GIVEN TO MAHESH THORNTON ON 4 MED SURG, PT BEING TRANSFERRED TO RM [id number]
[2020-12-27 07:01] LABS: RED BLOOD COUNT 3.11 M/UL (4.20-5.50); WHITE BLOOD COUNT 8.3 K/UL (4.5-11.0)
[2020-12-27 09:12] LABS: BUN/CREATININE RATIO 20 (0-10)
[2020-12-28 08:31] LABS: HEMOGLOBIN 8.9 gm/dl (14.0-17.5); RED BLOOD COUNT 3.03 M/UL (4.20-5.50); WHITE BLOOD COUNT 8.9 K/UL (4.5-11.0)
[2020-12-29 07:42] LABS: HEMOGLOBIN 9.1 gm/dl (14.0-17.5); RED BLOOD COUNT 3.18 M/UL (4.20-5.50); WHITE BLOOD COUNT 8.7 K/UL (4.5-11.0)
[2020-12-29 08:08] LABS: BUN/CREATININE RATIO 22 (0-10)
[2020-12-29] MEDS ORDERED: LASIX40 MG PO (14:57)
--- NOTE | 2020-12-29 17:43 | NUR ---
REPORT CALLED TO [facility].
== END 2020-12-29 18:23 | disposition home health service (06) | DRG 291 ==
LOC: ER1 21:47 → CDU 12-26 01:46 → PROG CARE 12-26 01:46 → MED SURG 4 12-26 15:09
PROVIDERS: Physician Assistant; ADMIT Internal Medicine
DX: I13.0 Hypertensive heart and chronic kidney disease with heart failure and stage 1 through stage 4 chronic kidney disease, or unspecified chronic kidney disease (principal); I33.9 Acute and subacute endocarditis, unspecified; I50.33 Acute on chronic diastolic (congestive) heart failure; Z20.822 Contact with and (suspected) exposure to COVID-19; N17.9 Acute kidney failure, unspecified; E87.1 Hypo-osmolality and hyponatremia; I08.1 Rheumatic disorders of both mitral and tricuspid valves; F17.210 Nicotine dependence, cigarettes, uncomplicated; N18.30 Chronic kidney disease, stage 3 unspecified; I44.7 Left bundle-branch block, unspecified; F11.10 Opioid abuse, uncomplicated; F41.9 Anxiety disorder, unspecified; I49.5 Sick sinus syndrome; D63.1 Anemia in chronic kidney disease; F15.10 Other stimulant abuse, uncomplicated; B18.2 Chronic viral hepatitis C; Z95.0 Presence of cardiac pacemaker; Z79.01 Long term (current) use of anticoagulants; Z95.2 Presence of prosthetic heart valve; Z90.49 Acquired absence of other specified parts of digestive tract; Z82.49 Family history of ischemic heart disease and other diseases of the circulatory system; Z83.3 Family history of diabetes mellitus; Z91.14 Patient's other noncompliance with medication regimen
CPT/HCPCS: 36415; 36600; 71045; 80048; 80053; 80307; 82550; 82553; 82570; 82803; 83874; 83880; 83935; 84156; 84300; 84484; 85025; 85610; 85730; 86140; 87086; 93005; 94640; 94664; 94760; 99285; J0878; J1940; J2185; J3370; J7030; J7050; J7070; Q9967; U0002

== ENCOUNTER 2021-01-02 23:48 | Emergency (ER) | payer OTHER ==
[~2021-01-02 23:48] MED LIST changes: +LASIX40 MG PO
[2021-01-03 01:10] LABS: HEMOGLOBIN 8.3 gm/dl (14.0-17.5); RED BLOOD COUNT 2.88 M/UL (4.20-5.50); WHITE BLOOD COUNT 12.6 K/UL (4.5-11.0)
== END 2021-01-03 07:40 ==
LOC: ER1 23:48
PROVIDERS: Family Medicine
DX: J96.00 Acute respiratory failure, unspecified whether with hypoxia or hypercapnia (principal); I50.9 Heart failure, unspecified; Z95.0 Presence of cardiac pacemaker; Z20.822 Contact with and (suspected) exposure to COVID-19; F41.9 Anxiety disorder, unspecified; R60.0 Localized edema; E87.1 Hypo-osmolality and hyponatremia; N17.9 Acute kidney failure, unspecified; Z79.01 Long term (current) use of anticoagulants; Z87.891 Personal history of nicotine dependence; D64.9 Anemia, unspecified; Z99.81 Dependence on supplemental oxygen
CPT/HCPCS: 71045; 80053; 80307; 82550; 82553; 83874; 83880; 84484; 85025; 85610; 93005; 99285; G0480; U0002